=== PATIENT | female | born 1955 | race Caucasian/White ===

== ENCOUNTER 2023-07-09 09:50 | Day surgery (SDC) | payer MEDICARE ==
[2023-07-09] MEDS ORDERED: Sodium Chloride 0.9(Preservative Free) 10 ML IJ ONE (09:51)
[2023-07-09] MEDS ORDERED: Depo-Medrol 40 MG/ML IM ONE (09:51)
[2023-07-09] MEDS ORDERED: Versed 2 MG/2 ML Injection ONE (10:59)
[2023-07-09] MEDS ORDERED: DIPRIVAN 200 MG/20 ML IV ONE (12:10)
[2023-07-09] MEDS ORDERED: MORPHINE SULFATE 2 MG INJ ONE ×2 (12:34→12:51)
--- NOTE | 2023-07-09 13:53 | XRAY ---
Indication: Right L4-S1 transforaminal IMTIAZ. Intraoperative fluoroscopy provided for 1 minute 2 seconds. 13 digital spot images submitted for interpretation demonstrates posterior needle tips projecting over the expected right L4 and L5 nerve roots. Small amount of contrast injected for needle tip placement.. Correlate with intraoperative findings/report.
--- NOTE | 2023-07-09 14:47 | XRAY ---
One minute and 2 seconds of fluoroscopy was used in surgery for a right L4-S1 transforaminal IMTIAZ.
[2023-07-09] MEDS ORDERED: Lactated Ringers 1,000 ML IV ONE (17:01)
== END 2023-07-09 13:23 | disposition home or self-care (01) ==
LOC: SDC-PAIN 09:50
PROVIDERS: ATTEND Psychiatry & Neurology Pain Medicine
DX: M54.16 Radiculopathy, lumbar region (principal); E11.9 Type 2 diabetes mellitus without complications; Z79.899 Other long term (current) drug therapy
CPT/HCPCS: 64483; 64484; 72100; 77003; 82947; J1030; J2250; J2270; J2704; Q9966

== ENCOUNTER 2023-09-11 13:06 | Day surgery (SDC) | payer MEDICARE ==
[2023-09-11] MEDS ORDERED: Depo-Medrol 40 MG/ML IM ONE (13:07)
[2023-09-11] MEDS ORDERED: BUPIVACAINE 0.5% VIAL IJ ONE (13:07)
[2023-09-11] MEDS ORDERED: XYLOCAINE-MPF 1% 5ML SDV IJ ONE (13:07)
[2023-09-11] MEDS ORDERED: Decadron 4 MG INJ IV ONE (13:07)
[2023-09-11 14:41] LABS: Absolute Neutrophil Ct (ANC) 2.48 x10^3/uL (1.4-6.9); BASOPHIL % 0.9 % (0.0-0.4); Basophil (Absolute #) 0.04 x10^3/uL (0-0.4); Eosinophil % 4.2 % (0.00-5.0); Eosinophil (Absolute #) 0.18 x10^3/uL (0-0.5); Hematocrit 41.4 % (35-47); Hemoglobin 13.1 g/dL (12.0-16.0); IMMATURE GRAN # 0.02 x10^3u/L (0.00-0.03); IMMATURE GRAN % 0.5 % (0.00-0.4); Lymphocyte (Absolute #) 1.27 x10^3/uL (1.0-4.6); Lymphocytes % 29.7 % (24.0-44.0); Mean Cell Volume 97.6 fL (78-100); Mean Corpuscular Hemoglobin 30.9 pg (26-32); Mean Corpuscular Hgb Concent. 31.6 g/dL (32-36); Mean Platelet Volume 9.5 fL (7.5-11.0); Monocyte (Absolute #) 0.28 x10^3/uL (0.0-1.3); Monocytes % 6.6 % (0.0-12.0); Neutrophil % 58.1 % (36.0-66.0); Platelet Count 109 x10^3/uL (150-450); Red Blood Count 4.24 x10^6/uL (4.1-5.4); Red Cell Distribution Width 16.8 % (11.5-14.0); White Blood Count 4.3 x10^3/uL (4.0-10.5)
[2023-09-11 15:27] LABS: Erythrocyte Sedimentation Rate 51 mm/hr (0-20); Free T4 1.42 ng/dL (0.78-2.19); Vitamin D Total 31.6 ng/mL (30-100)
[2023-09-11] MEDS ORDERED: DIPRIVAN 200 MG/20 ML IV ONE (15:27)
[2023-09-11 15:41] LABS: ALBUMIN 3.2 g/dL (3.5-5.0); ANION GAP 8.8 MEQ/L (5-15); Calcium 9.1 mg/dL (8.4-10.2); Creatinine 1 0.57 mg/dL (0.52-1.04); EST GLOMERULAR FILTRATION RATE 98.3 ML/MIN; Potassium 3.9 mmol/L (3.5-5.1); TSH, 3RD Generation 6.95 mIU/L (0.47-4.68); Total Protein 7.3 g/dL (6.3-8.2)
[2023-09-11] MEDS ORDERED: MORPHINE SULFATE 2 MG INJ ONE (15:47)
[2023-09-11] MEDS ORDERED: Lactated Ringers 1,000 ML IV ONE (16:31)
--- NOTE | 2023-09-11 16:49 | XRAY ---
Indication: Right piriformis and right greater trochanter bursa injection. Intraoperative fluoroscopy provided for 38 seconds. 2 digital spot image obtained prone submitted for interpretation demonstrates posterior needle tip projecting over the right piriformis. Second needle tip lateral to the right greater trochanter. Small amount of contrast injected for both needle tip placement. Correlate with intraoperative findings/report.
--- NOTE | 2023-09-11 16:53 | XRAY ---
38 seconds of fluoroscopy was used in surgery for a right piriformis and greater trochanteric bursa injection.
[2023-09-11 19:20] LABS: Amphetamine,Urine NEGATIVE (NEGATIVE); Barbiturate,Urine NEGATIVE (NEGATIVE); Benzodiazepine,Urine NEGATIVE (NEGATIVE); Cocaine,Urine NEGATIVE (NEGATIVE); Methadone,Urine NEGATIVE (NEGATIVE); Opiate,Urine POSITIVE (NEGATIVE); PCP,Urine NEGATIVE (NEGATIVE); THC,Urine NEGATIVE (NEGATIVE)
[2023-09-12 17:17] LABS: Albumin 2.9 g/dL (2.9-4.4); Alpha-1-Globulin 0.3 g/dL (0.0-0.4); Alpha-2-Globulin 0.5 g/dL (0.4-1.0); Immunoglobulin A, Qn 564 mg/dL (87-352); Immunoglobulin G, Qn 1747 mg/dL (586-1602); Immunoglobulin M, Qn 287 mg/dL (26-217); Protein, Total 6.5 g/dL (6.0-8.5)
[2023-09-13 08:32] LABS: QuantiFERON-TB Gold Plus Negative (Negative)
== END 2023-09-11 16:10 | disposition home or self-care (01) ==
LOC: SDC-PAIN 13:06
PROVIDERS: ATTEND Psychiatry & Neurology Pain Medicine
DX: M70.61 Trochanteric bursitis, right hip (principal); M79.18 Myalgia, other site; E11.9 Type 2 diabetes mellitus without complications; Z79.899 Other long term (current) drug therapy; E03.9 Hypothyroidism, unspecified; K57.81 Diverticulitis of intestine, part unspecified, with perforation and abscess with bleeding; M06.9 Rheumatoid arthritis, unspecified; M85.80 Other specified disorders of bone density and structure, unspecified site
CPT/HCPCS: 20552; 20610; 36415; 73501; 77002; 80053; 80307; 82306; 82784; 82947; 83521; 84439; 84443; 85025; 85652; 86480; J1030; J1100; J2270; J2704; Q9966